=== PATIENT | male | born 1985 | race Caucasian/White ===

== ENCOUNTER 2020-03-21 22:06 | Emergency (ER) | payer SELFPAY ==
[~2020-03-21] VITALS: Ht 170.2 cm; Wt 100.0 kg
[~2020-03-21 22:06] MED LIST: LORTAB 5/500 501 TAB PO; NO HOME MEDICATIONS; ROBAXIN 50500 MG/TAB PO
[2020-03-21 22:15] VITALS: TEMP 98
[2020-03-21 22:49] LABS: BASO % 0.3 % (0.0-2.0); EOS # 0.1 (0.0-0.7); EOS % 1.3 % (0-4.0); GRAN # 5.1 (1.4-6.5); GRAN % 57.8 % (42.2-75.2); HEMATOCRIT 37.3 % (42.0-52.0); HEMOGLOBIN 12.8 g/dl (13.5-18.0); LYMPH # 2.9 (1.2-3.4); MEAN CELL VOLUME 87 fl (80.0-100.0); MEAN CORPUSCULAR HEMOGLOBIN 30 pg (27.0-31.0); MEAN CORPUSCULAR HGB CONC 34 g/dl (33.0-37.0); MEAN PLATELET VOLUME 8.9 fl (7.4-10.4); MONO # 0.8 (0.1-0.6); MONO % 8.5 % (1.7-9.3); PLATELET COUNT 398 K/mm3 (130-400); RED BLOOD COUNT 4.27 M/mm3 (4.20-5.60); REDCELL DISTRIBUTION WIDTH-CV 12.3 % (11.5-14.5)
[2020-03-21 23:01] LABS: ALANINE AMINOTRANSFERASE 46 U/L (4-49); ALKALINE PHOSPHATASE 106 U/L (50-136); ANION GAP 6 mmol/L (7-16); AST,SGOT 30 U/L (15-37); BILIRUBIN,TOTAL 0.4 mg/dL (0.0-1.0); BLOOD UREA NITROGEN 11 mg/dL (9-20); CARBON DIOXIDE 26 mmol/L (22-30); CHLORIDE 106 mmol/L (98-107); CREATININE, serum 0.99 (0.66-1.25); GLUCOSE 90 mg/dL (74-106); POTASSIUM 3.7 mmol/L (3.4-5.0); SODIUM 138 mmol/L (137-145); TOTAL PROTEIN 7.1 gm/dL (6.4-8.2)
[2020-03-21 23:04] LABS: C-REACTIVE PROTEIN < 0.5 mg/dL (0.0-0.9)
[2020-03-21 23:32] LABS: COLLECTION METHOD CLEAN CATCH
[2020-03-21 23:37] LABS: MUCOUS Present /lpf; PH 7 (5-8); SQUAMOUS EPITHELIAL None Seen /hpf; URINE APPEARANCE Clear; URINE BACTERIA None Seen /hpf; URINE BILIRUBIN Negative (NEGATIVE); URINE BLOOD Negative (NEGATIVE); URINE COLOR Yellow; URINE GLUCOSE Negative (NEGATIVE); URINE KETONE Negative (NEGATIVE); URINE LEUKOCYTE ESTERASE Negative (NEGATIVE); URINE NITRATE Negative (NEGATIVE); URINE PROTEIN(semi-quant) Negative (NEGATIVE); URINE RBC 0-2 /hpf; URINE UROBILINOGEN Negative (NEGATIVE)
[2020-03-22 00:20] VITALS: BP 138/94; PULSE 84
[2020-03-22] MEDS ORDERED: NORCO 325 MG-51 TAB PO (17:29)
== END 2020-03-22 00:20 | disposition home or self-care (01) ==
LOC: COL.ER 22:06
PROVIDERS: Emergency Medicine
DX: R10.31 Right lower quadrant pain (principal); R11.0 Nausea
CPT/HCPCS: J2405; J3010; J7030; Q9967

== ENCOUNTER 2020-03-22 15:13 | Emergency (ER) | payer SELFPAY ==
[~2020-03-22] VITALS: Ht 170.2 cm; Wt 100.0 kg
[2020-03-22 15:45] VITALS: TEMP 96.8
[2020-03-22] MEDS ORDERED: NORCO 325 MG-51 TAB PO (17:29)
[2020-03-22 18:30] VITALS: BP 138/75; PULSE 79
== END 2020-03-22 18:24 | disposition home or self-care (01) ==
LOC: COL.ER 15:13
DX: R10.31 Right lower quadrant pain (principal); R11.0 Nausea

== ENCOUNTER 2020-03-25 02:32 | Emergency (ER) | payer SELFPAY ==
[~2020-03-25] VITALS: Ht 170.2 cm; Wt 100.0 kg
[~2020-03-25 02:32] MED LIST changes: +NORCO 325 MG-51 TAB PO
[2020-03-25 02:35] VITALS: TEMP 97.9
[2020-03-25 02:47] LABS: BASO # 0.1 (0.0-0.2); BASO % 0.5 % (0.0-2.0); EOS # 0.2 (0.0-0.7); GRAN # 5.4 (1.4-6.5); GRAN % 54.7 % (42.2-75.2); HEMATOCRIT 41.4 % (42.0-52.0); HEMOGLOBIN 14.4 g/dl (13.5-18.0); LYMPH # 3.4 (1.2-3.4); LYMPH % 34.5 % (20.0-51.0); MEAN CELL VOLUME 86 fl (80.0-100.0); MEAN CORPUSCULAR HEMOGLOBIN 30 pg (27.0-31.0); MEAN CORPUSCULAR HGB CONC 35 g/dl (33.0-37.0); MEAN PLATELET VOLUME 8.5 fl (7.4-10.4); MONO # 0.8 (0.1-0.6); MONO % 8.2 % (1.7-9.3); PLATELET COUNT 449 K/mm3 (130-400); RED BLOOD COUNT 4.83 M/mm3 (4.20-5.60); REDCELL DISTRIBUTION WIDTH-CV 12.2 % (11.5-14.5)
[2020-03-25 02:59] LABS: ALANINE AMINOTRANSFERASE 28 U/L (4-49); ALBUMIN 4.1 gm/dL (3.5-5.0); ALKALINE PHOSPHATASE 98 U/L (50-136); ANION GAP 8 mmol/L (7-16); AST,SGOT 22 U/L (15-37); BILIRUBIN,TOTAL 0.5 mg/dL (0.0-1.0); BLOOD UREA NITROGEN 11 mg/dL (9-20); C-REACTIVE PROTEIN < 0.5 mg/dL (0.0-0.9); CALCIUM 9.4 mg/dL (8.4-10.2); CARBON DIOXIDE 24 mmol/L (22-30); CHLORIDE 107 mmol/L (98-107); GLUCOSE 99 mg/dL (74-106); LIPASE 69 U/L (23-300); POTASSIUM 3.8 mmol/L (3.4-5.0); SODIUM 138 mmol/L (137-145); TOTAL PROTEIN 7.4 gm/dL (6.4-8.2)
[2020-03-25 05:24] VITALS: BP 147/70; PULSE 88
== END 2020-03-25 05:24 | disposition home or self-care (01) ==
LOC: COL.ER 02:32
PROVIDERS: Emergency Medicine
DX: K40.90 Unilateral inguinal hernia, without obstruction or gangrene, not specified as recurrent (principal)
CPT/HCPCS: J1200; J1790; J7030

== ENCOUNTER 2020-11-29 07:01 | Day surgery (SDC) | payer SELFPAY ==
--- NOTE | 2020-11-21 07:43 | NUR ---
Patient admitted to room 7 ambulatory accompanied by spouse and oriented to room. Admitted to drinking Monster drink at 0700. Anesthesia notified and Dr. Bartholomew notified. Patient will be canceled for today and rescheduled at a later date. Patient left and voices understanding of the need to reschedule.
[2020-11-29] VITALS (7 sets, daily range): BP systolic 128–152; BP diastolic 87–96; PULSE 77–91; TEMP 97.7–98.9
[~2020-11-29] VITALS: Ht 167.6 cm; Wt 85.6 kg
--- NOTE | 2020-11-29 07:44 | NUR ---
TO RM 6 AT 0710- CALL LIGHT IN REACH MINNIE BENAVIDES AT BEDSIDE.
[2020-11-29] MEDS ORDERED: ULTRAM 50MG TAB50 MG PO (10:28)
--- NOTE | 2020-11-29 10:50 | NUR ---
TO RM 6 PER CART FROM PACU. RESPONDS TO VERBAL STIMULI BY NODDING HEAD AND FALLS BACK TO SLEEP. SKIN ADHESIVE OVER INCISION SITE CLEAN DRY INTACT.
--- NOTE | 2020-11-29 11:05 | NUR ---
CONTINUES TO SLEEP QUIETLY.
--- NOTE | 2020-11-29 11:41 | NUR ---
C/O INCREASED PAIN. RECEIVED NORCO 5MG 1 TAB.
--- NOTE | 2020-11-29 11:45 | NUR ---
AMBULTED TO BATHROOM. MOVED SLOW DUE TO PAIN. VOIDED AND AMBULATED BACK TO
--- NOTE | 2020-11-29 12:06 | NUR ---
RECEIVED DISCHARGE INSTRUCTIONS AND VERBALIZED UNDERSTANDING. DISCONTINUED IV AND INT- CATHETER INTACT PATIENT GETTING DRESSED.
--- NOTE | 2020-11-29 12:15 | NUR ---
DISCHARGED PER WC BY NURSING STAFF TO PRIVATE CAR IN CARE OF [place].
== END 2020-11-29 12:57 | disposition home or self-care (01) ==
LOC: SDCO 07:01
DX: K40.90 Unilateral inguinal hernia, without obstruction or gangrene, not specified as recurrent (principal); K42.9 Umbilical hernia without obstruction or gangrene; F17.210 Nicotine dependence, cigarettes, uncomplicated; Z79.899 Other long term (current) drug therapy; Z83.3 Family history of diabetes mellitus; Z80.9 Family history of malignant neoplasm, unspecified; Z20.822 Contact with and (suspected) exposure to COVID-19
CPT/HCPCS: C1781; J0690; J1885; J2704; J3010; J7120